=== PATIENT | female | born 1955 | race Caucasian/White ===

== ENCOUNTER 2017-08-10 14:22 | Emergency (ER) | payer BC ==
--- NOTE | 2017-08-10 14:46 | ED ---
General Adult HPI - General Chief complaint: Arrhythmia/Palpitations Stated complaint: Afib Time Seen by Provider: 08/10/17 14:34 Source: patient, EMS, RN notes reviewed Mode of arrival: EMS Limitations: no limitations - History of Present Illness Initial comments: Patient is a pleasant 62-year-old female presenting to the emergency department with palpitations. Onset was 7:30 this morning during argument. Patient has had similar symptoms previously associated with atrial fibrillation. Patient states there was mild heaviness associated which is also normal when she has these problems. Patient states she is having these problems and been in atrial fibrillation dozens of times previously. Patient used to have symptoms multiple times a month however currently is only having around once a month. Patient states it is not abnormal for the last 12-15 hours. Patient states she took her metoprolol this morning and then took an extra 50 mg this afternoon. Patient states symptoms resolved around the time of EMS arrival. No dyspnea. - Related Data Home Medications Medication Instructions Recorded Confirmed Cholecalciferol [Vitamin D3] 2,000 unit PO DAILY 02/27/16 08/10/17 Metoprolol Tartrate [Lopressor] 150 mg PO DAILY 02/27/16 08/10/17 Omeprazole [PriLOSEC] 20 mg PO DAILY PRN 02/27/16 08/10/17 Simvastatin [Zocor] 20 mg PO HS 02/27/16 08/10/17 Vitamin B Complex 1 cap PO DAILY 02/27/16 08/10/17 Warfarin Sodium [Coumadin] 5 mg PO HS 02/27/16 08/10/17 Allergies Allergy/AdvReac Type Severity Reaction Status Date / Time No Known Allergies Allergy Verified 08/10/17 14:48 Review of Systems ROS Statement: Those systems with pertinent positive or pertinent negative responses have been documented in the HPI. ROS Other: All systems not noted in ROS Statement are negative. Constitutional: Denies: fever Eyes: Denies: as per HPI ENT: Denies: ear pain Respiratory: Denies: cough Cardiovascular: Reports: palpitations Endocrine: Denies: fatigue Gastrointestinal: Denies: abdominal pain Genitourinary: Denies: dysuria Musculoskeletal: Denies: back pain Skin: Denies: rash Neurological: Denies: weakness Past Medical History Past Medical History: Coronary Artery Disease (CAD) Additional Past Medical History / Comment(s): proximal afib History of Any Multi-Drug Resistant Organisms: None Reported Past Surgical History: Section, Cholecystectomy, Hysterectomy, Orthopedic Surgery Past Psychological History: Depression Smoking Status: Never smoker Past Alcohol Use History: Occasional Past Drug Use History: None Reported General Exam Limitations: no limitations General appearance: alert, in no apparent distress Head exam: Present: atraumatic Eye exam: Present: normal appearance, PERRL ENT exam: Present: normal oropharynx Neck exam: Present: normal inspection Respiratory exam: Present: normal lung sounds bilaterally. Absent: chest wall tenderness Cardiovascular Exam: Present: regular rate, normal rhythm Expanded Peripheral pulses: 2+: Radial (R), Radial (L), Posterior Tibialis (R), Posterior Tibialis (L) GI/Abdominal exam: Present: soft. Absent: tenderness Extremities exam: Present: normal inspection. Absent: pedal edema, calf tenderness Neurological exam: Present: alert Psychiatric exam: Present: normal affect, normal mood Skin exam: Present: normal color Course Vital Signs 08/10/17 14:27 Temperature 97 F L Pulse Rate 63 Respiratory 16 Rate Blood Pressure 128/70 O2 Sat by Pulse 99 Oximetry EKG Findings - EKG Comments: EKG Findings:: Sinus bradycardia 56. SC 180. QRS 80. QT 410. QTc 395. Normal axis. Normal QRS. No acute ST change. Medical Decision Making - Medical Decision Making Patient reexamined and remained symptom-free. Patient requesting discharge. Patient is advised to follow-up with cardiology however states she will not see a copper flotation operator around here and will follow-up with somebody else. Patient rhythm remains normal sinus rhythm. Patient is therapeutic with Coumadin level. - Lab Data Result diagrams: 08/10/17 14:40 08/10/17 14:40 Lab Results 08/10/17 08/10/17 08/10/17 Range/Units 14:40 14:40 14:40 WBC 8.7 (3.8-10.6) k/uL RBC 5.40 (3.80-5.40) m/uL Hgb 16.4 H (11.4-16.0) gm/dL Hct 47.0 H (34.0-46.0) % MCV 87.1 (80.0-100.0) fL MCH 30.4 (25.0-35.0) pg MCHC 35.0 (31.0-37.0) g/dL RDW 14.7 (11.5-15.5) % Plt Count 185 (150-450) k/uL Neutrophils % 73 % Lymphocytes % 19 % Monocytes % 5 % Eosinophils % 2 % Basophils % 1 % Neutrophils # 6.3 (1.3-7.7) k/uL Lymphocytes # 1.6 (1.0-4.8) k/uL Monocytes # 0.4 (0-1.0) k/uL Eosinophils # 0.2 (0-0.7) k/uL Basophils # 0.0 (0-0.2) k/uL PT (9.0-12.0) sec INR (<1.2) APTT (22.0-30.0) sec Sodium 142 (137-145) mmol/L Potassium 4.1 (3.5-5.1) mmol/L Chloride 105 (98-107) mmol/L Carbon Dioxide 29 (22-30) mmol/L Anion Gap 8 mmol/L BUN 19 H (7-17) mg/dL Creatinine 0.80 (0.52-1.04) mg/dL Est GFR (MDRD) Af Amer >60 (>60 ml/min/1.73 sqM) Est GFR (MDRD) Non-Af >60 (>60 ml/min/1.73 sqM) Glucose 105 H (74-99) mg/dL Calcium 9.5 (8.4-10.2) mg/dL Magnesium 1.5 L (1.6-2.3) mg/dL Total Bilirubin 0.6 (0.2-1.3) mg/dL AST 26 (14-36) U/L ALT 40 (9-52) U/L Alkaline Phosphatase 70 (38-126) U/L Total Creatine Kinase 51 (30-135) U/L CK-MB (CK-2) 2.3 (0.0-2.4) ng/mL CK-MB (CK-2) Rel Index 4.5 Troponin I 0.014 (0.000-0.034) ng/mL Total Protein 6.4 (6.3-8.2) g/dL Albumin 3.9 (3.5-5.0) g/dL TSH 2.300 (0.465-4.680) mIU/L Free T4 1.08 (0.78-2.19) ng/dL Free T3 pg/mL 3.5 (2.8-5.3) pg/ml 08/10/17 Range/Units 14:40 WBC (3.8-10.6) k/uL RBC (3.80-5.40) m/uL Hgb (11.4-16.0) gm/dL Hct (34.0-46.0) % MCV (80.0-100.0) fL MCH (25.0-35.0) pg MCHC (31.0-37.0) g/dL RDW (11.5-15.5) % Plt Count (150-450) k/uL Neutrophils % % Lymphocytes % % Monocytes % % Eosinophils % % Basophils % % Neutrophils # (1.3-7.7) k/uL Lymphocytes # (1.0-4.8) k/uL Monocytes # (0-1.0) k/uL Eosinophils # (0-0.7) k/uL Basophils # (0-0.2) k/uL PT 21.1 H (9.0-12.0) sec INR 2.2 H (<1.2) APTT 28.8 (22.0-30.0) sec Sodium (137-145) mmol/L Potassium (3.5-5.1) mmol/L Chloride (98-107) mmol/L Carbon Dioxide (22-30) mmol/L Anion Gap mmol/L BUN (7-17) mg/dL Creatinine (0.52-1.04) mg/dL Est GFR (MDRD) Af Amer (>60 ml/min/1.73 sqM) Est GFR (MDRD) Non-Af (>60 ml/min/1.73 sqM) Glucose (74-99) mg/dL Calcium (8.4-10.2) mg/dL Magnesium (1.6-2.3) mg/dL Total Bilirubin (0.2-1.3) mg/dL AST (14-36) U/L ALT (9-52) U/L Alkaline Phosphatase (38-126) U/L Total Creatine Kinase (30-135) U/L CK-MB (CK-2) (0.0-2.4) ng/mL CK-MB (CK-2) Rel Index Troponin I (0.000-0.034) ng/mL Total Protein (6.3-8.2) g/dL Albumin (3.5-5.0) g/dL TSH (0.465-4.680) mIU/L Free T4 (0.78-2.19) ng/dL Free T3 pg/mL (2.8-5.3) pg/ml - Radiology Data Radiology results: image reviewed (Chest x-ray shows borderline cardiomegaly.) Disposition Clinical Impression: Atrial fibrillation Disposition: HOME SELF-CARE Condition: Stable Instructions: A-fib (Atrial Fibrillation) (ED) Additional Instructions: Please follow-up to primary care physician as well as cardiology tomorrow. Return for increased heart rate, difficulty breathing, chest pain, worsening symptoms or other concerns. Referrals: Eliazar Kirkland DO [Primary Care Provider] - 1-2 days Brody Mcdaniel MD [STAFF PHYSICIAN] - 1-2 days Time of Disposition: 15:54
[2017-08-10 14:56] LABS: Basophils % (A) 1 %; CH 30.6; CHCM 35.3; Eosinophils # (A) 0.2 k/uL (0-0.7); Eosinophils % (A) 2 %; HDW 2.78; HGB 16.4 gm/dL (11.4-16.0); Luc % (Auto) 1; Lymphocytes # (A) 1.6 k/uL (1.0-4.8); Lymphocytes % (A) 19 %; MCH 30.4 pg (25.0-35.0); MCV 87.1 fL (80.0-100.0); Mean Platelet Volume 7.5; Monocytes # (A) 0.4 k/uL (0-1.0); Monocytes % (A) 5 %; Neutrophils # (A) 6.3 k/uL (1.3-7.7); Neutrophils % (A) 73 %; RDW 14.7 % (11.5-15.5); WBC 8.7 k/uL (3.8-10.6); WBC (Perox) 8.93
[2017-08-10 15:03] LABS: INR 2.2 (<1.2); Partial Thromboplastin Time 28.8 sec (22.0-30.0); Prothrombin Time 21.1 sec (9.0-12.0)
[2017-08-10 15:05] LABS: ALT 40 U/L (9-52); AST 26 U/L (14-36); Alkaline Phosphatase 70 U/L (38-126); Anion Gap 8 mmol/L; Blood Urea Nitrogen 19 mg/dL (7-17); Calcium 9.5 mg/dL (8.4-10.2); Carbon Dioxide 29 mmol/L (22-30); Chloride 105 mmol/L (98-107); Glucose 105 mg/dL (74-99); Magnesium 1.5 mg/dL (1.6-2.3); Non-African American GFR(MDRD) >60 (>60 ml/min/1.73 sqM); Potassium 4.1 mmol/L (3.5-5.1); Sodium 142 mmol/L (137-145); Total Bilirubin 0.6 mg/dL (0.2-1.3); Total Protein 6.4 g/dL (6.3-8.2)
--- NOTE | 2017-08-10 15:08 | XR ---
EXAMINATION TYPE: XR chest 2V DATE OF EXAM: 08/10/2017 COMPARISON: Prior chest x-ray 02/27/2016 HISTORY: Dysrhythmia TECHNIQUE: Frontal and lateral views of the chest are obtained. FINDINGS: There is no focal air space opacity, pleural effusion, or pneumothorax seen. The cardiac silhouette size is enlarged. Patient is rotated. There are overlying cardiac leads. The osseous struc tures are intact. Surgical clips present in the right upper quadrant. IMPRESSION: Cardiomegaly may be at least in part due to rotation
[2017-08-10 15:27] LABS: Creatine Kinase MB 2.3 ng/mL (0.0-2.4); Troponin I 0.014 ng/mL (0.000-0.034)
[2017-08-10] MEDS ORDERED: MAGNESIUM OXIDE 400 MG TAB PO STA (15:50)
[2017-08-10 16:18] VITALS: BP 146/70; PULSE 52; RESP 18; TEMP 97.6
== END 2017-08-10 16:23 | disposition home or self-care (01) ==
LOC: EC 14:22
DX: I48.91 Unspecified atrial fibrillation (principal); I25.10 Atherosclerotic heart disease of native coronary artery without angina pectoris; Z79.01 Long term (current) use of anticoagulants; Z79.899 Other long term (current) drug therapy
CPT/HCPCS: 36415; 71020; 80053; 82550; 82553; 83735; 84439; 84443; 84481; 84484; 85025; 85610; 85730; 93005; 99285

== ENCOUNTER 2017-09-28 23:57 | Emergency (ER) | payer BC ==
[2017-09-28] MEDS ORDERED: SODIUM CHLORIDE 0.9% 500 ML IV STA (23:58)
[2017-09-28] MEDS ORDERED: SODIUM CHLORIDE 0.9% 1,000 ML IV STA (23:58)
[2017-09-28] MEDS ORDERED: DILTIAZEM 5 MG/ML 5 ML VIAL IVP STA (23:59)
[2017-09-28] MEDS ORDERED: DILTIAZEM 125 MG in SODIUM CHLORIDE 0.9% 100 ML IV ONE (23:59)
--- NOTE | 2017-09-29 | ED ---
General Adult HPI - General Stated complaint: arrythmia Time Seen by Provider: 09/28/17 23:58 Source: RN notes reviewed, old records reviewed - History of Present Illness Initial comments: This is a 62-year-old female to the ER for evaluation. She presents today for evaluation regarding still elevated heart rate. Near-syncopal events. Patient has history of A. fib with RVR recent ablation and decrease in, patient states for the past week she's had no no issues until tonight. She was vomiting increased stress with the holiday, does admit to not taking her magnesium as directed. Denies any chest pain, claims she feels okay - Related Data Home Medications Medication Instructions Recorded Confirmed Cholecalciferol [Vitamin D3] 2,000 unit PO DAILY 02/27/16 09/29/17 Metoprolol Tartrate [Lopressor] 25 mg PO DAILY 02/27/16 09/29/17 Omeprazole [PriLOSEC] 20 mg PO DAILY PRN 02/27/16 09/29/17 Simvastatin [Zocor] 20 mg PO HS 02/27/16 09/29/17 Vitamin B Complex 1 cap PO DAILY 02/27/16 09/29/17 Warfarin Sodium [Coumadin] 5 mg PO HS 02/27/16 09/29/17 Dofetilide [Tikosyn] 250 mcg PO Q12HR 09/29/17 09/29/17 Allergies Allergy/AdvReac Type Severity Reaction Status Date / Time No Known Allergies Allergy Verified 09/29/17 00:00 Review of Systems ROS Statement: Those systems with pertinent positive or pertinent negative responses have been documented in the HPI. ROS Other: All systems not noted in ROS Statement are negative. Past Medical History Past Medical History: Coronary Artery Disease (CAD), Hyperlipidemia Additional Past Medical History / Comment(s): proximal afib History of Any Multi-Drug Resistant Organisms: None Reported Past Surgical History: Section, Cholecystectomy, Orthopedic Surgery Past Alcohol Use History: None Reported General Exam General appearance: alert, in no apparent distress Head exam: Present: atraumatic, normocephalic, normal inspection Eye exam: Present: normal appearance, PERRL, EOMI. Absent: scleral icterus, conjunctival injection, periorbital swelling ENT exam: Present: normal exam, mucous membranes moist Neck exam: Present: normal inspection. Absent: tenderness, meningismus, lymphadenopathy Respiratory exam: Present: normal lung sounds bilaterally. Absent: respiratory distress, wheezes, rales, rhonchi, stridor Cardiovascular Exam: Present: tachycardia, irregular rhythm, normal heart sounds. Absent: systolic murmur, diastolic murmur, rubs, gallop, clicks GI/Abdominal exam: Present: soft, normal bowel sounds. Absent: distended, tenderness, guarding, rebound, rigid Extremities exam: Present: normal inspection, full ROM, normal capillary refill. Absent: tenderness, pedal edema, joint swelling, calf tenderness Back exam: Present: normal inspection Neurological exam: Present: alert, oriented X3, CN II-XII intact Psychiatric exam: Present: normal affect, normal mood Skin exam: Present: warm, dry, intact, normal color. Absent: rash Course Vital Signs 09/28/17 09/29/17 09/29/17 23:58 00:00 00:06 Temperature 97.5 F L Pulse Rate 69 112 H Pulse Rate [ 86 Housing Inspector ] Respiratory 20 18 Rate Blood Pressure 169/83 O2 Sat by Pulse 97 97 Oximetry 09/29/17 09/29/17 09/29/17 01:00 02:00 03:00 Temperature Pulse Rate 122 H 100 106 H Pulse Rate [ Housing Inspector ] Respiratory 18 20 20 Rate Blood Pressure 169/83 169/84 115/72 O2 Sat by Pulse 98 98 98 Oximetry - Reevaluation(s) Reevaluation #1: 09/29/17 04:02 Spoke with patient's transferred physician, on-call flight surveyor, suggested adding metoprolol, medications and the patient's heart rate did improve. Reevaluation #2: 09/29/17 04:03 Patient is continuing to feel better, electrolytes like to replaced. Patient will follow up with pertinent EP doctor on an outpatient basis EKG Findings - EKG Comments: EKG Findings:: EKG shows does show atrial fibrillation with RVR rate of 111, QRS 82, QTc 508 Medical Decision Making - Medical Decision Making 62 female DEL with A. fib with RVR, history of A. fib with RVR history of A. fib recent ablation on antiarrhythmic, patient went back into A. fib tonight and can full rate. Patient felt dizzy and lightheaded we'll transfer placed here in the ER, rate is more controlled patient will be discharged home - Lab Data Result diagrams: 09/29/17 00:34 09/29/17 00:34 Lab Results 09/29/17 09/29/17 09/29/17 Range/Units 00:34 00:34 00:34 WBC 8.3 (3.8-10.6) k/uL RBC 5.45 H (3.80-5.40) m/uL Hgb 16.8 H (11.4-16.0) gm/dL Hct 46.9 H (34.0-46.0) % MCV 86.1 (80.0-100.0) fL MCH 30.8 (25.0-35.0) pg MCHC 35.7 (31.0-37.0) g/dL RDW 13.3 (11.5-15.5) % Plt Count 190 (150-450) k/uL Neutrophils % 68 % Lymphocytes % 23 % Monocytes % 5 % Eosinophils % 3 % Basophils % 1 % Neutrophils # 5.6 (1.3-7.7) k/uL Lymphocytes # 1.9 (1.0-4.8) k/uL Monocytes # 0.4 (0-1.0) k/uL Eosinophils # 0.2 (0-0.7) k/uL Basophils # 0.0 (0-0.2) k/uL PT (9.0-12.0) sec INR (<1.2) APTT (22.0-30.0) sec Sodium 143 (137-145) mmol/L Potassium 3.7 (3.5-5.1) mmol/L Chloride 104 (98-107) mmol/L Carbon Dioxide 27 (22-30) mmol/L Anion Gap 12 mmol/L BUN 20 H (7-17) mg/dL Creatinine 0.80 (0.52-1.04) mg/dL Est GFR (MDRD) Af Amer >60 (>60 ml/min/1.73 sqM) Est GFR (MDRD) Non-Af >60 (>60 ml/min/1.73 sqM) Glucose 150 H (74-99) mg/dL Calcium 9.6 (8.4-10.2) mg/dL Phosphorus 2.0 L (2.5-4.5) mg/dL Magnesium 1.4 L (1.6-2.3) mg/dL Total Bilirubin 0.7 (0.2-1.3) mg/dL AST 38 H (14-36) U/L ALT 41 (9-52) U/L Alkaline Phosphatase 81 (38-126) U/L Total Creatine Kinase 66 (30-135) U/L CK-MB (CK-2) 1.6 (0.0-2.4) ng/mL CK-MB (CK-2) Rel Index 2.4 Troponin I <0.012 (0.000-0.034) ng/mL Total Protein 6.4 (6.3-8.2) g/dL Albumin 3.9 (3.5-5.0) g/dL TSH 4.290 (0.465-4.680) mIU/L Urine Color Urine Appearance (Clear) Urine pH (5.0-8.0) Ur Specific [place] (1.001-1.035) Urine Protein (Negative) Urine Glucose (UA) (Negative) Urine Ketones (Negative) Urine Blood (Negative) Urine Nitrite (Negative) Urine Bilirubin (Negative) Urine Urobilinogen (<2.0) mg/dL Ur Leukocyte Esterase (Negative) Urine RBC (0-5) /hpf Urine WBC (0-5) /hpf Ur Squamous Epith Cells (0-4) /hpf 09/29/17 09/29/17 Range/Units 00:34 00:34 WBC (3.8-10.6) k/uL RBC (3.80-5.40) m/uL Hgb (11.4-16.0) gm/dL Hct (34.0-46.0) % MCV (80.0-100.0) fL MCH (25.0-35.0) pg MCHC (31.0-37.0) g/dL RDW (11.5-15.5) % Plt Count (150-450) k/uL Neutrophils % % Lymphocytes % % Monocytes % % Eosinophils % % Basophils % % Neutrophils # (1.3-7.7) k/uL Lymphocytes # (1.0-4.8) k/uL Monocytes # (0-1.0) k/uL Eosinophils # (0-0.7) k/uL Basophils # (0-0.2) k/uL PT 38.9 H (9.0-12.0) sec INR 4.3 H (<1.2) APTT 36.6 H (22.0-30.0) sec Sodium (137-145) mmol/L Potassium (3.5-5.1) mmol/L Chloride (98-107) mmol/L Carbon Dioxide (22-30) mmol/L Anion Gap mmol/L BUN (7-17) mg/dL Creatinine (0.52-1.04) mg/dL Est GFR (MDRD) Af Amer (>60 ml/min/1.73 sqM) Est GFR (MDRD) Non-Af (>60 ml/min/1.73 sqM) Glucose (74-99) mg/dL Calcium (8.4-10.2) mg/dL Phosphorus (2.5-4.5) mg/dL Magnesium (1.6-2.3) mg/dL Total Bilirubin (0.2-1.3) mg/dL AST (14-36) U/L ALT (9-52) U/L Alkaline Phosphatase (38-126) U/L Total Creatine Kinase (30-135) U/L CK-MB (CK-2) (0.0-2.4) ng/mL CK-MB (CK-2) Rel Index Troponin I (0.000-0.034) ng/mL Total Protein (6.3-8.2) g/dL Albumin (3.5-5.0) g/dL TSH (0.465-4.680) mIU/L Urine Color Colorless Urine Appearance Clear (Clear) Urine pH 7.0 (5.0-8.0) Ur Specific [place] 1.005 (1.001-1.035) Urine Protein 1+ (Negative) Urine Glucose (UA) Negative (Negative) Urine Ketones Negative (Negative) Urine Blood Small (Negative) Urine Nitrite Negative (Negative) Urine Bilirubin Negative (Negative) Urine Urobilinogen <2.0 (<2.0) mg/dL Ur Leukocyte Esterase Negative (Negative) Urine RBC 1 (0-5) /hpf Urine WBC 0 (0-5) /hpf Ur Squamous Epith Cells 1 (0-4) /hpf Disposition Clinical Impression: Atrial fibrillation Disposition: HOME SELF-CARE Condition: Good Instructions: A-fib (Atrial Fibrillation) (ED) Referrals: Eliazar Kirkland DO [Primary Care Provider] - 1-2 days
[2017-09-29 00:01] VITALS: TEMP 97.5
[2017-09-29 00:56] LABS: INR 4.3 (<1.2); Partial Thromboplastin Time 36.6 sec (22.0-30.0); Prothrombin Time 38.9 sec (9.0-12.0)
[2017-09-29 00:57] LABS: Basophils % (A) 1 %; CH 31.5; CHCM 36.7; Eosinophils # (A) 0.2 k/uL (0-0.7); Eosinophils % (A) 3 %; HCT 46.9 % (34.0-46.0); HDW 3.04; HGB 16.8 gm/dL (11.4-16.0); Luc % (Auto) 1; Lymphocytes # (A) 1.9 k/uL (1.0-4.8); Lymphocytes % (A) 23 %; MCH 30.8 pg (25.0-35.0); MCHC 35.7 g/dL (31.0-37.0); MCV 86.1 fL (80.0-100.0); Mean Platelet Volume 6.6; Monocytes # (A) 0.4 k/uL (0-1.0); Monocytes % (A) 5 %; Neutrophils # (A) 5.6 k/uL (1.3-7.7); Neutrophils % (A) 68 %; RBC 5.45 m/uL (3.80-5.40); RDW 13.3 % (11.5-15.5); WBC 8.3 k/uL (3.8-10.6); WBC (Perox) 8.07
[2017-09-29 01:14] LABS: Appearance,Urine Clear (Clear)
[2017-09-29 01:15] LABS: Bilirubin,Urine Negative (Negative); Creatine Kinase 66 U/L (30-135); Glucose,Urine (UA) Negative (Negative); Leukocyte Esterase,Urine Negative (Negative); Nitrite,Urine Negative (Negative); Protein,Urine 1+ (Negative); Specific Gravity,Urine 1.005 (1.001-1.035); UA Billing (MACRO vs. MICRO) MICRO
[2017-09-29 01:17] LABS: Urobilinogen,Urine <2.0 mg/dL (<2.0)
[2017-09-29 01:20] LABS: RBC,Urine 1 /hpf (0-5); Squamous Epithelial Cell,Urine 1 /hpf (0-4); WBC,Urine 0 /hpf (0-5)
[2017-09-29 01:21] LABS: Ketones,Urine Negative (Negative)
[2017-09-29 01:22] LABS: ALT 41 U/L (9-52); AST 38 U/L (14-36); Alkaline Phosphatase 81 U/L (38-126); Anion Gap 12 mmol/L; Blood Urea Nitrogen 20 mg/dL (7-17); Calcium 9.6 mg/dL (8.4-10.2); Carbon Dioxide 27 mmol/L (22-30); Chloride 104 mmol/L (98-107); Glucose 150 mg/dL (74-99); Magnesium 1.4 mg/dL (1.6-2.3); Non-African American GFR(MDRD) >60 (>60 ml/min/1.73 sqM); Potassium 3.7 mmol/L (3.5-5.1); Sodium 143 mmol/L (137-145); Total Bilirubin 0.7 mg/dL (0.2-1.3); Total Protein 6.4 g/dL (6.3-8.2)
[2017-09-29 01:28] LABS: Creatine Kinase MB 1.6 ng/mL (0.0-2.4); Troponin I <0.012 ng/mL (0.000-0.034)
[2017-09-29] MEDS ORDERED: MAGNESIUM OXIDE 400 MG TAB PO STA (01:42)
[2017-09-29] MEDS ORDERED: POTASSIUM BICARB-CITRIC ACID 25 MEQ TABLET.EFF PO STA (01:42)
[2017-09-29] MEDS ORDERED: MAGNESIUM SULFATE-D5W PMX 1 GM in DEXTROSE/WATER 1 100ML.BAG IVPB SCH (02:00)
[2017-09-29] MEDS ORDERED: POTASSIUM CHLORIDE ER 20 MEQ TAB.ER PO STA (02:04)
[2017-09-29] MEDS ORDERED: METOPROLOL TARTRATE 25 MG TAB PO STA (02:13)
[2017-09-29 02:36] VITALS: RESP 20
[2017-09-29 03:23] VITALS: BP 115/72; PULSE 106
== END 2017-09-29 04:14 | disposition home or self-care (01) ==
LOC: EC 23:57
DX: I48.91 Unspecified atrial fibrillation (principal); R11.10 Vomiting, unspecified; E78.5 Hyperlipidemia, unspecified; I25.10 Atherosclerotic heart disease of native coronary artery without angina pectoris; Z79.01 Long term (current) use of anticoagulants; Z79.899 Other long term (current) drug therapy; Z98.890 Other specified postprocedural states
CPT/HCPCS: 36415; 93005; 80053; 82550; 82553; 83735; 84100; 84443; 84484; 85025; 85610; 85730; 81001; 99285; 96365; 96361; J3475

== ENCOUNTER 2017-11-12 13:06 | Observation (INO) | payer BC ==
[2017-11-12] MEDS ORDERED: SODIUM CHLORIDE 0.9% 500 ML IV STA (13:33)
[2017-11-12 13:34] LABS: Glucose,Whole Blood 124 mg/dL (75-99)
--- NOTE | 2017-11-12 13:38 | ED ---
General Adult HPI - General Chief complaint: Neuro Symptoms/Deficit Stated complaint: left arm numbness/slurred speech Time Seen by Provider: 11/12/17 13:10 Source: patient, RN notes reviewed Mode of arrival: wheelchair Limitations: no limitations - History of Present Illness Initial comments: Assessment 62-year-old female presents emergency Department with a past medical history significant for migraines. Patient comes in today because earlier today she started having a migraine headache and then at about 12:00 she started having some numbness on the left side with a little bit of weakness on the left arm. Patient also states she thought her speech was off. Patient denies any headache. Patient denies any right-sided symptoms. Patient denies any chest pain difficulty breathing or shortness of breath. Patient denies any nausea or vomiting. Patient seems to be speaking clearly and states that she still thinks she's not speaking clearly. - Related Data Home Medications Medication Instructions Recorded Confirmed Cholecalciferol [Vitamin D3] 2,000 unit PO DAILY 02/27/16 11/12/17 Omeprazole [PriLOSEC] 20 mg PO DAILY PRN 02/27/16 11/12/17 Vitamin B Complex 1 cap PO DAILY 02/27/16 11/12/17 Warfarin Sodium [Coumadin] 5 mg PO HS 02/27/16 11/12/17 Dofetilide [Tikosyn] 250 mcg PO Q12HR 09/29/17 11/12/17 Magnesium Gluconate [Magonate] 500 mg PO TID 11/12/17 11/12/17 Metoprolol Tartrate [Lopressor] 25 mg PO Q12H 11/12/17 11/12/17 Allergies Allergy/AdvReac Type Severity Reaction Status Date / Time azithromycin [From Zithromax] AdvReac Nausea & Verified 11/12/17 14:11 Vomiting Review of Systems ROS Statement: Those systems with pertinent positive or pertinent negative responses have been documented in the HPI. ROS Other: All systems not noted in ROS Statement are negative. Past Medical History Past Medical History: Coronary Artery Disease (CAD), Hyperlipidemia Additional Past Medical History / Comment(s): proximal afib History of Any Multi-Drug Resistant Organisms: None Reported Past Surgical History: Section, Cholecystectomy, Orthopedic Surgery Past Psychological History: Depression Smoking Status: Never smoker Past Alcohol Use History: None Reported Past Drug Use History: None Reported General Exam - General Exam Comments Initial Comments: GENERAL: Patient is well-developed and well-nourished. Patient is nontoxic and well- hydrated and is in mild distress. ENT: Neck is soft and supple. No significant lymphadenopathy is noted. Oropharynx is clear. Moist mucous membranes. Neck has full range of motion without eliciting any pain. EYES: The sclera were anicteric and conjunctiva were pink and moist. Extraocular movements were intact and pupils were equal round and reactive to light. Eyelids were unremarkable. PULMONARY: Unlabored respirations. Good breath sounds bilaterally. No audible rales rhonchi or wheezing was noted. CARDIOVASCULAR: There is a regular rate and rhythm without any murmurs gallops or rubs. ABDOMEN: Soft and nontender with normal bowel sounds. No palpable organomegaly was noted. There is no palpable pulsatile mass. SKIN: Skin is clear with no lesions or rashes and otherwise unremarkable. NEUROLOGIC: Patient is alert and oriented x3. Cranial nerves II through XII are grossly intact. Patient has slight decreased warp drawer in the left and patient feels as though her sensation in her left leg is decreased compared to the right. Normal speech, volume and content. Patient has no drift and she has a symmetrical smile MUSCULOSKELETAL: Normal extremities with adequate strength and full range of motion. No lower extremity swelling or edema. No calf tenderness. LYMPHATICS: No significant lymphadenopathy is noted PSYCHIATRIC: Normal psychiatric evaluation. Limitations: no limitations Course Vital Signs 11/12/17 11/12/17 11/12/17 13:08 13:21 13:34 Temperature 97.4 F L Pulse Rate 75 67 68 Respiratory 20 18 18 Rate Blood Pressure 215/98 182/83 180/96 O2 Sat by Pulse 96 100 99 Oximetry 11/12/17 11/12/17 13:49 14:04 Temperature Pulse Rate 68 62 Respiratory Rate Blood Pressure 205/93 185/83 O2 Sat by Pulse 100 100 Oximetry Medical Decision Making - Medical Decision Making EKG shows normal sinus rhythm at 65 bpm MI interval is 168 QRSs 82 QT interval is 444 QTC is 461 per patient's EKG shows no ST segment elevation or depression or T wave abnormalities are noted. CTA and CT of the head showed no acute abnormality. The neuro interventional is noted no about this case was okay without doing any TPA. Patient's symptoms seemed to resolve however she still complained of a significant migraine headache Patient refuses have a consult for Dr. Monson or Dr. Bland - Lab Data Result diagrams: 11/12/17 13:30 11/12/17 13:30 Lab Results 11/12/17 11/12/17 11/12/17 Range/Units 13:30 13:30 13:30 WBC 6.5 (3.8-10.6) k/uL RBC 5.44 H (3.80-5.40) m/uL Hgb 16.4 H (11.4-16.0) gm/dL Hct 47.6 H (34.0-46.0) % MCV 87.6 (80.0-100.0) fL MCH 30.1 (25.0-35.0) pg MCHC 34.4 (31.0-37.0) g/dL RDW 12.9 (11.5-15.5) % Plt Count 195 (150-450) k/uL Neutrophils % 68 % Lymphocytes % 23 % Monocytes % 4 % Eosinophils % 2 % Basophils % 1 % Neutrophils # 4.5 (1.3-7.7) k/uL Lymphocytes # 1.5 (1.0-4.8) k/uL Monocytes # 0.3 (0-1.0) k/uL Eosinophils # 0.1 (0-0.7) k/uL Basophils # 0.0 (0-0.2) k/uL PT (9.0-12.0) sec INR (<1.2) APTT (22.0-30.0) sec Sodium 139 (137-145) mmol/L Potassium 4.0 (3.5-5.1) mmol/L Chloride 102 (98-107) mmol/L Carbon Dioxide 24 (22-30) mmol/L Anion Gap 13 mmol/L BUN 20 H (7-17) mg/dL Creatinine 0.70 (0.52-1.04) mg/dL Est GFR (MDRD) Af Amer >60 (>60 ml/min/1.73 sqM) Est GFR (MDRD) Non-Af >60 (>60 ml/min/1.73 sqM) Glucose 129 H (74-99) mg/dL POC Glucose (mg/dL) (75-99) mg/dL POC Glu Clay Artist ID Calcium 9.7 (8.4-10.2) mg/dL Total Bilirubin 1.0 (0.2-1.3) mg/dL AST 40 H (14-36) U/L ALT 37 (9-52) U/L Alkaline Phosphatase 91 (38-126) U/L Total Creatine Kinase 78 (30-135) U/L CK-MB (CK-2) 2.2 (0.0-2.4) ng/mL CK-MB (CK-2) Rel Index 2.8 Troponin I <0.012 (0.000-0.034) ng/mL Total Protein 7.2 (6.3-8.2) g/dL Albumin 4.6 (3.5-5.0) g/dL 11/12/17 11/12/17 Range/Units 13:30 13:32 WBC (3.8-10.6) k/uL RBC (3.80-5.40) m/uL Hgb (11.4-16.0) gm/dL Hct (34.0-46.0) % MCV (80.0-100.0) fL MCH (25.0-35.0) pg MCHC (31.0-37.0) g/dL RDW (11.5-15.5) % Plt Count (150-450) k/uL Neutrophils % % Lymphocytes % % Monocytes % % Eosinophils % % Basophils % % Neutrophils # (1.3-7.7) k/uL Lymphocytes # (1.0-4.8) k/uL Monocytes # (0-1.0) k/uL Eosinophils # (0-0.7) k/uL Basophils # (0-0.2) k/uL PT 18.5 H (9.0-12.0) sec INR 2.0 H (<1.2) APTT 28.3 (22.0-30.0) sec Sodium (137-145) mmol/L Potassium (3.5-5.1) mmol/L Chloride (98-107) mmol/L Carbon Dioxide (22-30) mmol/L Anion Gap mmol/L BUN (7-17) mg/dL Creatinine (0.52-1.04) mg/dL Est GFR (MDRD) Af Amer (>60 ml/min/1.73 sqM) Est GFR (MDRD) Non-Af (>60 ml/min/1.73 sqM) Glucose (74-99) mg/dL POC Glucose (mg/dL) 124 H (75-99) mg/dL POC Glu Clay Artist ID Vesna Robison Calcium (8.4-10.2) mg/dL Total Bilirubin (0.2-1.3) mg/dL AST (14-36) U/L ALT (9-52) U/L Alkaline Phosphatase (38-126) U/L Total Creatine Kinase (30-135) U/L CK-MB (CK-2) (0.0-2.4) ng/mL CK-MB (CK-2) Rel Index Troponin I (0.000-0.034) ng/mL Total Protein (6.3-8.2) g/dL Albumin (3.5-5.0) g/dL Disposition Clinical Impression: Migraine headache, Transient cerebral ischemia Disposition: ADMITTED IP TO THIS [facility] Time of Disposition: 15:35
[2017-11-12 13:43] LABS: Basophils % (A) 1 %; Eosinophils # (A) 0.1 k/uL (0-0.7); Eosinophils % (A) 2 %; HCT 47.6 % (34.0-46.0); HGB 16.4 gm/dL (11.4-16.0); Lymphocytes # (A) 1.5 k/uL (1.0-4.8); Lymphocytes % (A) 23 %; MCH 30.1 pg (25.0-35.0); MCHC 34.4 g/dL (31.0-37.0); MCV 87.6 fL (80.0-100.0); Monocytes # (A) 0.3 k/uL (0-1.0); Monocytes % (A) 4 %; Neutrophils # (A) 4.5 k/uL (1.3-7.7); Neutrophils % (A) 68 %; Platelet Count 195 k/uL (150-450); RBC 5.44 m/uL (3.80-5.40); RDW 12.9 % (11.5-15.5); WBC 6.5 k/uL (3.8-10.6)
[2017-11-12] MEDS ORDERED: RX INFO: IV CONTRAST WAS GIVEN 1 EACH MISC MISCELLANE PRN (13:50)
[2017-11-12] MEDS ORDERED: ONDANSETRON 4 MG/2 ML VIAL IVP STA (13:51)
[2017-11-12 13:58] LABS: Partial Thromboplastin Time 28.3 sec (22.0-30.0); Prothrombin Time 18.5 sec (9.0-12.0)
--- NOTE | 2017-11-12 13:58 | CT ---
EXAMINATION TYPE: CT brain wo con for TPA DATE OF EXAM: 11/12/2017 COMPARISON: NONE INDICATION: Lt sided numbness, severe FRITZ DLP: 1006.7 mGycm, Automated exposure control for dose reduction was used. CONTRAST: None CT of the brain is performed utilizing 3 mm thick sections through the posterior fossa and 3 mm thick sections through the remaining calvarium. Study is performed within 24 hours of arrival to the hosp ital. No abnormal hyperdensity is present to suggest an acute intracranial hemorrhage. No mass lesion is evident. No acute infarcts are evident. Very subtle white matter ischemic change may be within the bilateral p osterior basal ganglion into the periventricular regions. This is nonspecific. No mass effect is evid ent. Chronic changes likely present. Ventricles and sulci are appropriate for the patient age. Paranasal sinuses and mastoid air cells within the [id number] are clear. IMPRESSIONS: 1. Very subtle white matter ischemic type changes are likely present. Acute infarct is not identifi ed. No acute hemorrhage is evident.
[2017-11-12 14:00] LABS: ALT 37 U/L (9-52); AST 40 U/L (14-36); Albumin 4.6 g/dL (3.5-5.0); Alkaline Phosphatase 91 U/L (38-126); Anion Gap 13 mmol/L; Blood Urea Nitrogen 20 mg/dL (7-17); Calcium 9.7 mg/dL (8.4-10.2); Carbon Dioxide 24 mmol/L (22-30); Chloride 102 mmol/L (98-107); Glucose 129 mg/dL (74-99); Sodium 139 mmol/L (137-145); Total Protein 7.2 g/dL (6.3-8.2)
[2017-11-12 14:11] LABS: Creatine Kinase 78 U/L (30-135)
[2017-11-12 14:23] LABS: Creatine Kinase MB 2.2 ng/mL (0.0-2.4); Troponin I <0.012 ng/mL (0.000-0.034)
--- NOTE | 2017-11-12 15:13 | CT ---
EXAMINATION TYPE: CT angio head neck DATE OF EXAM: 11/12/2017 HISTORY: Patient complains of headache. COMPARISON: NONE CT DLP: 507.8 mGycm. Automated Exposure Control for Dose Reduction was Utilized. TECHNIQUE: CTA scan of the neck is performed with IV Contrast, patient injected with 80 mL of Omnipa que 350, axial images are obtained, coronal and sagittal reformatted images are reviewed. Three-D rec onstructed images are created on an independent workstation and reviewed. FINDINGS: Carotid/Vascular Structures: There is a normal three-vessel arch. Bilateral vertebral arteries are pa tent. Common carotid arteries to the internal carotid arteries appear normal. Internal carotid arteri es appear unremarkable. Minimal atheromatous plaquing is present on the left carotid bifurcation with out stenosis. [place]: Internal carotid arteries bifurcate into A1 and M1 segments. A2 segments appear unr emarkable. Anterior communicating artery is patent. Middle cerebral artery branches are normal. Basil ar tip is unremarkable. Posterior cerebral vasculature is normal. Posterior communicating arteries ar e not identified. There may be a tympanic artery present on the right, normal variant. Other: Lung apices are clear. Portion of the thyroid visualized is normal. Subglottic airway is smith l. Vocal cord level is symmetrical. No suspicious adenopathy is evident. Parotid glands and submandib ular glands are normal. IMPRESSION: 1. Normal bilateral carotid bifurcations. 2. Normal three-vessel arch. 3. [place] is within normal limits.
[2017-11-12] MEDS ORDERED: PROMETHAZINE INJ 25 MG/ML 1 ML VIAL IVPB STA (15:29)
[2017-11-12] MEDS ORDERED: KETOROLAC 60 MG/2 ML VIAL IVP STA (15:29)
[2017-11-12] MEDS ORDERED: diphenhydrAMINE 50 MG/ML 1 ML VIAL IVP STA (15:29)
[2017-11-12] MEDS ORDERED: PROMETHAZINE INJ 25 MG in SODIUM CHLORIDE 0.9% 50 ML IVPB STA (15:31)
[2017-11-12] MEDS ORDERED: ASPIRIN 325 MG TAB PO STA (15:35)
--- NOTE | 2017-11-12 15:48 | XR ---
EXAMINATION TYPE: XR chest 2V DATE OF EXAM: 11/12/2017 COMPARISON: Chest x-ray August 10, 2017. HISTORY: Altered mental status and weakness. Left arm numbness. TECHNIQUE: Frontal and lateral views of the chest are obtained. FINDINGS: There is chronic parenchymal change without suspicious focal air space opacity, pleural ef fusion, or pneumothorax seen. The cardiac silhouette size remains enlarged. The osseous structures are intact. IMPRESSION: Cardiomegaly and chronic parenchymal changes without acute pulmonary process. No signifi cant change from prior chest x-ray.
[2017-11-12] MEDS ORDERED: HYDROmorphone 0.5 MG/0.5 ML SYRINGE IVP PRN (17:38)
[2017-11-12] MEDS ORDERED: PANTOPRAZOLE 40 MG TABLET PO PRN (17:39)
[2017-11-12] MEDS ORDERED: Acetaminophen-Codeine 300-30mg TAB PO PRN (17:40)
[2017-11-12] MEDS ORDERED: KETOROLAC 30 MG/ML 1 ML VIAL IVP PRN (17:41)
[2017-11-12] MEDS ORDERED: METOPROLOL TARTRATE 25 MG TAB PO SCH (18:00)
[2017-11-12 18:49] VITALS: BMI 33.9
--- NOTE | 2017-11-12 19:33 | P.CNNES ---
History of Present Illness Consult date: 11/12/17 Reason for Consult: This patient with left arm weakness and headaches. History of Present Illness: This patient is a 62-year-old right-handed white female who was brought into the emergency room admin [facility] today for evaluation of headache. Patient was cleaning her house early this afternoon and developed severe headache pain along with left-sided arm numbness and weakness. She was also noted by a friend who was with her as having some garbled speech. Patient just did not feel well and had to leave this home that she was cleaning. While driving home she noticed that the left arm was still giving her numb feeling as well as loss of sensation in the right foot as she was driving and using the pedals in her car. The patient has an extensive past medical history of coronary artery disease. She is undergone recent ablation procedures at [facility]. She states that on 10/09/2017 she underwent a PDI procedure at [facility] with Dr. Collado. Apparently he performed a special procedure which was considered an ablation procedure for treatment of her atrial fibrillation. In September 2017 she also underwent a ablation procedure for treatment of atrial flutter. The patient states that since 10/09/2017 she has been placed on T Brush for further management of her cardiac arrhythmia. She states she has been on T Brush since October. She has been having severe headaches more recently and was reevaluated by her physician at [facility] in October 12. She was sent for several studies which she states included a MRI and CTA angiogram studies due to the severity of her headaches at the time. She was told that there was some evidence of a small aneurysm but she is unable to elaborate the exact size or location of the aneurysm. We are requesting that all of those records from [facility] be obtained in regards to the MRI and CTA angiogram so this could be reviewed. The patient has been on Coumadin for treatment of her atrial fibrillation. Her INR today in the ER was 2.0. She did develop some headache in the ER and was given Toradol which did seem to help. In the emergency room she was evaluated by Dr. Laughlin. Apparently after the CT CTA results were obtained the neural interventionalists was contacted at [facility]. The patient was not a candidate for TPA. Her symptoms did seem to improve with time. 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 The patient is to be sent for MRI and MRA [place] this evening and we will need to review those results. Given her history of atrial fibrillation she is at risk for TIA versus stroke. Her migraine headaches are also of concern since recent testing at [facility] revealed presence of an aneurysm. We will obtain the MRI MRA results tomorrow and review this with the patient as well. The patient is currently doing better in terms of the migraine type headache. We will await further recommendations from cardiology in regards to her atrial fibrillation. Would also request cardiology to comment on the use of the T cousin possibly also triggering some of her vascular headaches. We will await further recommendations from cardiology. Patient states she does have a history of migraines in the past. She has been using only Motrin as needed. More recently since undergoing the PDI ablation procedure at [facility] on 10/09/2017 the migraine headaches have become more severe. At this time she will be closely monitored for possibility of TIA versus stroke. Would recommend to maintain her Coumadin levels with the INR between 2-3. Neurology is now been consulted for further evaluation and recommendations. Review of Systems Constitutional: Denies chills, Denies fever Eyes: denies blurred vision, denies pain Ears, nose, mouth and throat: Denies headache, Denies sore throat Cardiovascular: Denies chest pain, Denies shortness of breath Respiratory: Denies cough Gastrointestinal: Denies abdominal pain, Denies diarrhea, Denies nausea, Denies vomiting Genitourinary: Denies dysuria, Denies hematuria Musculoskeletal: Denies myalgias Integumentary: Denies pruritus, Denies rash Neurological: Reports headaches, Reports migraines, Reports paresthesias, Reports tingling, Denies numbness, Denies weakness Psychiatric: Denies anxiety, Denies depression Endocrine: Denies fatigue, Denies weight change Past Medical History Past Medical History: Coronary Artery Disease (CAD), Hyperlipidemia Additional Past Medical History / Comment(s): proximal afib History of Any Multi-Drug Resistant Organisms: None Reported Past Surgical History: Section, Cholecystectomy, Orthopedic Surgery Additional Past Surgical History / Comment(s): cardiac ablation, PVI 2018 Past Psychological History: Depression Smoking Status: Never smoker Past Alcohol Use History: None Reported Past Drug Use History: None Reported Medications and Allergies Home Medications Medication Instructions Recorded Confirmed Type Cholecalciferol [Vitamin D3] 2,000 unit PO DAILY 02/27/16 11/12/17 History Omeprazole [PriLOSEC] 20 mg PO DAILY PRN 02/27/16 11/12/17 History Vitamin B Complex 1 cap PO DAILY 02/27/16 11/12/17 History Warfarin Sodium [Coumadin] 5 mg PO HS 02/27/16 11/12/17 History Dofetilide [Tikosyn] 250 mcg PO Q12HR 09/29/17 11/12/17 History Magnesium Gluconate [Magonate] 500 mg PO TID 11/12/17 11/12/17 History Metoprolol Tartrate [Lopressor] 25 mg PO Q12H 11/12/17 11/12/17 History Allergies Allergy/AdvReac Type Severity Reaction Status Date / Time azithromycin [From Zithromax] AdvReac Nausea & Verified 11/12/17 14:11 Vomiting Physical Examination - Vital Signs Vital Signs: Vital Signs Temp Pulse Pulse Resp BP BP Pulse Ox 11/12/17 18:35 97.9 F 73 18 186/76 100 11/12/17 16:44 98 F 71 20 175/77 99 11/12/17 14:04 62 185/83 100 11/12/17 13:49 68 205/93 100 11/12/17 13:34 68 18 180/96 99 11/12/17 13:21 67 18 182/83 100 11/12/17 13:08 97.4 F L 75 20 215/98 96 Intake and Output 11/12/17 11/12/17 11/12/17 06:59 14:59 22:59 Other: Weight 113.398 kg 113.398 kg Patient Weight 11/13/17 06:59 Weight 113.398 kg - Constitutional General appearance: average body habitus, cooperative - EENT EENT: PERRL, mucous membranes moist - Respiratory Respiratory: lungs clear, normal breath sounds - Cardiovascular Cardiovascular: normal S1, normal S2 Extremities: no peripheral edema bilaterally - Gastrointestinal Gastrointestinal: normoactive bowel sounds - Integumentary Integumentary: normal - Neurologic Cranial nerve examination: PERRL, EOMI, VFF, V1/V2/V3 grossly intact, face symmetric, tongue midline, intact gag reflex, intact corneal reflex, normal palatal elevation Speech examination: intact Sensorimotor examination: intact Detailed motor examination: grossly full strength in all extremities Motor examination - right side: 4/5: biceps, triceps, wrist flexion, wrist extension, machine stoppage frequency checker, hip flexors, knee extensors, dorsiflexion, toe extension (EHL) , plantarflexion Motor examination - left side: 4/5: biceps, triceps, wrist flexion, wrist extension, machine stoppage frequency checker, hip flexors, knee extensors, dorsiflexion, toe extension (EHL) , plantarflexion Detailed sensory examination: intact Reflex and gait examination: intact Reflexes: 1+: ankle, bicep, knee, tricep - Musculoskeletal Musculoskeletal: no pain - Psychiatric Psychiatric: mood/affect appropriate, cooperative Results - Laboratory Findings CBC and BMP: 11/12/17 13:30 11/12/17 13:30 Abnormal Lab Findings: Abnormal Labs 11/12/17 11/12/17 11/12/17 13:30 13:30 13:30 RBC 5.44 H Hgb 16.4 H Hct 47.6 H PT 18.5 H INR 2.0 H BUN 20 H Glucose 129 H POC Glucose (mg/dL) AST 40 H C-Reactive Protein 11/12/17 11/12/17 13:30 13:32 RBC Hgb Hct PT INR BUN Glucose POC Glucose (mg/dL) 124 H AST C-Reactive Protein 12.9 H Assessment and Plan (1) Transient brainstem ischemia Current Visit: Yes Status: Acute Code(s): G45.9 - TRANSIENT CEREBRAL ISCHEMIC ATTACK, UNSPECIFIED SNOMED Code(s): 529976826 (2) Cerebral aneurysm Current Visit: Yes Status: Acute Code(s): I67.1 - CEREBRAL ANEURYSM, NONRUPTURED SNOMED Code(s): 440897990 (3) Chronic atrial fibrillation Current Visit: Yes Status: Acute Code(s): I48.2 - CHRONIC ATRIAL FIBRILLATION SNOMED Code(s): 182527091 (4) Migraine headache Current Visit: Yes Status: Acute Code(s): G43.909 - MIGRAINE, UNSP, NOT INTRACTABLE, WITHOUT STATUS MIGRAINOSUS SNOMED Code(s): 11403455 Plan: This patient is a 62-year-old female who was admitted to Hospital with symptoms of acute left arm numbness and weakness. She also had some slurring of speech early this afternoon while she was cleaning a neighbor's home. She was driving back home and she just did not feel well and noticed the left arm numbness become more pronounced. She was also experiencing numbness in her right foot. The foot also felt heavy. She was able to get home and called her daughter. She did notice that her headache pain was also quite severe on the left side. She was brought into the emergency room at [facility]. She underwent a CT scan of the brain and a CT angiogram. Neuro interventionalist at [facility] was was contacted and reviewed her neuroimaging studies and she was not a candidate for TPA. Patient was treated for acute migraine headache as well in the emergency room but toward all. She was subsequent admitted to Hospital. Patient has a history of recently undergoing PDI ablation procedure of [facility] on 10/09/2017. Following this procedure she was started on T Ajit. She has been having more severe migraine-like headaches since the procedure in October 2017. The patient is being anticoagulated and is on Coumadin. Her INR today on admission was 2.0. Clinical history suggests possibility of brainstem ischemia. We are recommending MRI MRA studies of the brain to be done today for immediate review. We will await further recommendations from cardiology regarding her extensive cardiac history and ablation procedures. Would also request their recommendation regarding her Tikosyn medication as to whether this may also contribute to headaches for her. Patient apparently had MRI done at [facility] in October that revealed a aneurysm. We are requesting all of the records from [facility] so this can be further reviewed. Patient is unable to give details of what she was told in October in terms of the aneurysm. We will continue to follow her closely with close neuro checks during this admission. Her overall prognosis at this time remains guarded. Time with Patient: Greater than 30
--- NOTE | 2017-11-12 20:12 | MR ---
EXAMINATION TYPE: MR angio head wo con DATE OF EXAM: 11/12/2017 COMPARISON: CTA head earlier today. HISTORY: Migraines TECHNIQUE: Time of flight images focusing on the [place] were performed without contrast.. 2-D and 3-D postprocessing imaging is performed. FINDINGS: There is codominant vertebrobasilar system redemonstrated. There is no significant focal st enosis or aneurysmal change seen. There are hypoplastic posterior communicating arteries noted bilate rally. Images of the anterior circulation show small show no significant focal stenosis or aneurysmal change . Patent anterior communicating artery is demonstrated. IMPRESSION: No significant focal stenosis or aneurysmal change at level of [place]. Findings correlate with same day CTA [place] study.
--- NOTE | 2017-11-12 20:14 | MR ---
EXAMINATION TYPE: MR brain wo/w con DATE OF EXAM: 11/12/2017 COMPARISON: CT brain earlier today HISTORY: Migraines TECHNIQUE: Multiplanar, multisequence images of the brain and brainstem is performed without and with IV contras t, utilizing 11.5 mL intravenous Gadavist . FINDINGS: Diffusion weighted images demonstrate no evidence of a recent infarct or other diffusion ab normality. There is no worrisome extra-axial fluid collection. The ventricular system and cisternal spaces are normal in size and appearance. The brain volume is age appropriate. Cavum septum pelluci dum is present. There are some scattered foci of T2 intensity is seen throughout the white matter yousif aterally. Lesions are most likely on the basis of product of chronic small vessel ischemic change in patient this age. Midline structures demonstrate normal morphology. The craniocervical junction appears within normal limits. Post contrast images demonstrate no abnormal enhancement. The dural venous sinuses appear pa tent. The visualized sinuses are clear and the globes are intact. IMPRESSION: No evidence of a recent infarct. Mild nonspecific white matter changes may be basis of pr oduct of chronic small vessel ischemic change or altered vascular mechanics related to migraine heada ches.
--- NOTE | 2017-11-12 20:18 | HP ---
HISTORY AND PHYSICAL DATE OF SERVICE: 11/12/2017. CHIEF COMPLAINTS: Headaches and as well as left arm numbness and right arm numbness and incoordination. HISTORY OF PRESENT ILLNESS: This 62-year-old woman with a past medical history including hyperlipidemia, history paroxysmal atrial fibrillation, history of CAD, being followed by primary physician elsewhere had a cardiac ablation procedure at [facility] recently. Subsequently patient has severe headaches, migraine mainly on the left side. Today the patient had numbness on the left side of the arm and as well as right leg also felt incoordination. Patient came to [facility] and was admitted for further evaluation and treatment. A CT and CT angiography was negative and there is no history of fever, rigors. No headache, loss of consciousness, seizures. PAST MEDICAL HISTORY: History of hyperlipidemia, history of paroxysmal atrial fibrillation, history of CAD ablation, history of section. MEDICATIONS: 1. Coumadin 5 mg q.h.s. 2. Vitamin B complex p.o. daily. 3. Prilosec 20 mg daily p.r.n. 4. Lopressor 25 mg p.o. b.i.d. 5. Magonate 500 mg p.o. t.i.d. 6. Tikosyn 250 mg p.o. b.i.d. 7. Vitamin D3 2000 daily. ALLERGIES: ZITHROMAX. FAMILY HISTORY: No history of heart disease or strokes in the family. 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 No history of smoking. No history of alcohol. REVIEW OF SYSTEMS: ENT: As mentioned earlier. CARDIOVASCULAR: No angina. RESPIRATORY: As mentioned earlier. GI: No nausea. : No dysuria. NERVOUS SYSTEM: As mentioned. ALLERGY/IMMUNOLOGY: No asthma or hayfever. MUSCULOSKELETAL: As mentioned earlier. HEMATOLOGY: No history of anemia. ENDOCRINE: No history of diabetes or hypothyroidism. CONSTITUTIONAL: As mentioned earlier. DERMATOLOGY: Negative. RHEUMATOLOGY: Negative. PSYCHIATRY: As mentioned earlier. PHYSICAL EXAM: Alert, oriented x3. Pulse 71, blood pressure 120/77, respiration 20, temperature 98 degrees, pulse ox 98% on 2 L. HEENT: Conjunctivae normal. Oral mucosa moist. NECK: No jugular venous distention. No carotid bruit. No lymph node enlargement. CARDIOVASCULAR: S1, S2. RESPIRATORY: Breath sounds diminished in the bases. No rhonchi, no crackles. ABDOMEN: Soft, nontender. No mass palpable. LEGS: No edema, no swelling. NERVOUS SYSTEM: Higher functions as mentioned earlier. Cranial nerves movements full in directions. Pupils are 3 mm regular and symmetrical. Otherwise no focal motor sensory deficit. Moves all 4 limbs. No signs of cerebellar dysfunction and gait not tested. LYMPHATICS: No lymphadenopathy in the neck, axillae, groin. SKIN: No ulcer, rash, bleeding. JOINTS: No active deforming arthropathy. LABS: WBC 6.2, hemoglobin 16.4. ASSESSMENT: 1. Severe headache, possibly migrainous cephalgia. 2. Numbness both sides, possible acute transient ischemic attack. 3. History of recent cardiac ablation. 4. Hyperlipidemia. 5. Paroxysmal atrial fibrillation. 6. History of coronary artery disease. 7. History of cholecystectomy. 8. History of degenerative joint disease. 9. History of depression. RECOMMENDATIONS AND DISCUSSION: This 62-year-old woman who presented with multiple complex medical issues, will monitor the patient closely. Continue the current management, continue the symptomatic treatment. I would recommend MRI and Neurology consultation and Cardiology consultation also. The prognosis is guarded because of the multiple complex medical issues. Discussed with the patient and family who understands and agrees. Further recommendations to follow. Prognosis guarded. See orders for details. MMODL / IJN: [id number] / MTDD
[2017-11-12] MEDS: DOFETILIDE 250 MCG CAP PO SCH (21:10)
[2017-11-12] MEDS: WARFARIN 5 MG TAB PO SCH (21:10)
[2017-11-12] MEDS: METOPROLOL TARTRATE 50 MG TAB PO SCH (21:10)
[2017-11-12] MEDS ORDERED: traMADol 50 MG TAB PO PRN (21:18)
[2017-11-13 05:56] LABS: Basophils % (A) 1 %; Eosinophils # (A) 0.2 k/uL (0-0.7); Eosinophils % (A) 3 %; HCT 41.9 % (34.0-46.0); HGB 13.8 gm/dL (11.4-16.0); Lymphocytes # (A) 1.8 k/uL (1.0-4.8); Lymphocytes % (A) 26 %; MCH 29.8 pg (25.0-35.0); MCV 90.2 fL (80.0-100.0); Mean Platelet Volume 6.8; Monocytes # (A) 0.4 k/uL (0-1.0); Monocytes % (A) 5 %; Neutrophils # (A) 4.3 k/uL (1.3-7.7); Neutrophils % (A) 63 %; Platelet Count 172 k/uL (150-450); RBC 4.64 m/uL (3.80-5.40); RDW 13.1 % (11.5-15.5); WBC 6.8 k/uL (3.8-10.6)
[2017-11-13 06:14] LABS: Anion Gap 8 mmol/L; Blood Urea Nitrogen 18 mg/dL (7-17); Calcium 8.7 mg/dL (8.4-10.2); Carbon Dioxide 27 mmol/L (22-30); Chloride 103 mmol/L (98-107); Cholesterol 113 mg/dL (<200); Glucose 145 mg/dL (74-99); HDL Cholesterol 36 mg/dL (40-60); LDL Cholesterol,Calculated 45 mg/dL (0-99); Potassium 3.6 mmol/L (3.5-5.1); Sodium 138 mmol/L (137-145); Triglycerides 158 mg/dL (<150)
[2017-11-13 06:16] LABS: INR 2.1 (<1.2); Prothrombin Time 18.6 sec (9.0-12.0)
[2017-11-13] MEDS: METOPROLOL TARTRATE 50 MG TAB PO SCH (06:40)
[2017-11-13] MEDS ORDERED: ASPIRIN 325 MG TAB PO SCH (09:00)
[2017-11-13] MEDS ORDERED: MAGNESIUM OXIDE 400 MG TAB PO SCH (09:00)
[2017-11-13] MEDS ORDERED: CHOLECALCIFEROL 1,000 UNIT TAB PO SCH (09:00)
[2017-11-13] MEDS: WARFARIN 5 MG TAB PO SCH (09:39)
[2017-11-13] MEDS: DOFETILIDE 250 MCG CAP PO SCH (09:39)
[2017-11-13 10:48] VITALS: RESP 16
[2017-11-13] MEDS ORDERED: KETOROLAC 30 MG/ML 1 ML VIAL IVP STA (11:23)
[2017-11-13 11:26] LABS: Appearance,Urine Turbid (Clear); Bacteria,Urine Occasional /hpf; Bilirubin,Urine Negative (Negative); Blood,Urine Negative (Negative); Color,Urine Yellow; Glucose,Urine (UA) Negative (Negative); Ketones,Urine Negative (Negative); Leukocyte Esterase,Urine Large (Negative); Mucus,Urine Many /hpf; Nitrite,Urine Negative (Negative); PH, Urine 5.5 (5.0-8.0); Protein,Urine 1+ (Negative); RBC,Urine 9 /hpf (0-5); Specific Gravity,Urine 1.034 (1.001-1.035); Squamous Epithelial Cell,Urine 52 /hpf (0-4); Urobilinogen,Urine <2.0 mg/dL (<2.0); WBC,Urine 40 /hpf (0-5)
[2017-11-13 11:36] VITALS: BP 127/62; PULSE 58; TEMP 97.6
[2017-11-13] MEDS ORDERED: B COMPLEX-VIT C-VIT E-ZINC 1 EACH TAB PO SCH (12:00)
[2017-11-13] MEDS ORDERED: LEVOFLOXACIN 500MG-D5W PMX 500 MG in DEXTROSE/WATER 1 100ML.BAG IVPB STA (12:24)
--- NOTE | 2017-11-13 13:02 | P.CRDCN ---
History of Present Illness Consult date: 11/13/17 History of present illness: This is a 62-year-old female with history of of persistent atrial fibrillation who recently underwent ablation at [facility]. Apparently she had a staged procedure. After pulmonary vein isolation, patient did develop some headache. Apparently sometimes people can get headaches after the procedure but that gradually improved within a week. Yesterday patient developed sudden left-sided headache followed by and numbness in the left arm and also in the right leg. The numbness symptoms lasted about 20 minutes and gradually improved. The headache took several hours to improve. Patient still has mild discomfort about the left thigh area. Patient had several investigations including a brain CT, MRI of the brain and neck and carotid studies. So far, no skin abnormalities are noted. Patient is wondering if this could be related to migraine headache. Dr. Valdovinos has evaluated the patient and was considering the possibility of TIA. Patient has been on Coumadin since the procedure and INRs were in the range of 2-2.1. If the symptoms are related to migraine headache, no further cardiac workup is suggested. However, if it is felt to be TIA, a NICOLAS may be considered. So far. Patient hasn't had any recurrence of atrial fibrillation since ablation. Her EKG on admission showed sinus rhythm Past Medical History Past Medical History: Coronary Artery Disease (CAD), Hyperlipidemia Additional Past Medical History / Comment(s): proximal afib History of Any Multi-Drug Resistant Organisms: None Reported Past Surgical History: Section, Cholecystectomy, Orthopedic Surgery Additional Past Surgical History / Comment(s): cardiac ablation, PVI 2017 Past Psychological History: Depression Smoking Status: Never smoker Past Alcohol Use History: None Reported Past Drug Use History: None Reported Medications and Allergies Home Medications Medication Instructions Recorded Confirmed Type Cholecalciferol [Vitamin D3] 2,000 unit PO DAILY 02/27/16 11/12/17 History Omeprazole [PriLOSEC] 20 mg PO DAILY PRN 02/27/16 11/12/17 History Vitamin B Complex 1 cap PO DAILY 02/27/16 11/12/17 History Warfarin Sodium [Coumadin] 5 mg PO HS 02/27/16 11/12/17 History Dofetilide [Tikosyn] 250 mcg PO Q12HR 09/29/17 11/12/17 History Magnesium Gluconate [Magonate] 500 mg PO TID 11/12/17 11/12/17 History Aspirin EC [Ecotrin Low Dose] 81 mg PO DAILY #1 tablet. 11/13/17 Rx Levofloxacin [Levaquin] 500 mg PO DAILY #5 tab 11/13/17 Rx Metoprolol Tartrate [Lopressor] 50 mg PO Q12H #60 tab 11/13/17 Rx Allergies Allergy/AdvReac Type Severity Reaction Status Date / Time azithromycin [From Zithromax] AdvReac Nausea & Verified 11/12/17 14:11 Vomiting Physical Exam Vitals: Vital Signs Temp Pulse Pulse Resp BP BP Pulse Ox 11/13/17 11:20 97.6 F 58 L 16 127/62 96 11/13/17 08:40 60 16 11/13/17 08:00 97.5 F L 58 L 16 108/53 97 11/13/17 03:55 57 L 18 11/13/17 03:53 98.0 F 57 L 18 122/58 94 L 11/13/17 00:00 99.2 F 67 18 123/58 95 11/12/17 20:00 98.1 F 77 18 151/69 92 L 11/12/17 18:35 97.9 F 73 18 186/76 100 11/12/17 16:44 98 F 71 20 175/77 99 11/12/17 14:04 62 185/83 100 11/12/17 13:49 68 205/93 100 11/12/17 13:34 68 18 180/96 99 11/12/17 13:21 67 18 182/83 100 11/12/17 13:08 97.4 F L 75 20 215/98 96 Intake and Output 11/12/17 11/13/17 11/13/17 22:59 06:59 14:59 Intake Total 240 Balance 240 Intake: Oral 240 Other: Voiding Method Toilet Toilet Toilet # Voids 1 1 Weight 113.398 kg 125.9 kg GENERAL EXAM: Patient is alert and oriented and doesn't appear to be in any acute distress HEENT: Normocephalic. Normal reaction of pupils, equal size, normal range of extraocular motion. No erythema or exudates in the throat. NECK: No masses, no nuchal rigidity. CHEST: No chest wall deformity. LUNGS: Equal air entry with no crackles or wheeze. HEART: S1 and S2 normal with no audible mumurs or gallops. Regular rhythm, femorals equal on both sides.. ABDOMEN: No hepatosplenomegaly, normal bowel sounds, no guarding or rigidity. SKIN: No rashes CENTRAL NERVOUS SYSTEM: No focal deficits. EXTREMITIES: No cyanosis, clubbing or edema. Results 11/13/17 05:40 11/13/17 05:40 Cardiac Enzymes 11/12/17 11/12/17 Range/Units 13:30 13:30 AST 40 H (14-36) U/L CK-MB (CK-2) 2.2 (0.0-2.4) ng/mL Troponin I <0.012 (0.000-0.034) ng/mL Coagulation 11/12/17 11/13/17 Range/Units 13:30 05:40 PT 18.5 H 18.6 H (9.0-12.0) sec APTT 28.3 (22.0-30.0) sec Lipids 11/13/17 Range/Units 05:40 Triglycerides 158 H (<150) mg/dL Cholesterol 113 (<200) mg/dL HDL Cholesterol 36 L (40-60) mg/dL CBC 11/12/17 11/13/17 Range/Units 13:30 05:40 WBC 6.5 6.8 (3.8-10.6) k/uL RBC 5.44 H 4.64 (3.80-5.40) m/uL Hgb 16.4 H 13.8 (11.4-16.0) gm/dL Hct 47.6 H 41.9 (34.0-46.0) % Plt Count 195 172 (150-450) k/uL Comprehensive Metabolic Panel 11/12/17 11/13/17 Range/Units 13:30 05:40 Sodium 139 138 (137-145) mmol/L Potassium 4.0 3.6 (3.5-5.1) mmol/L Chloride 102 103 (98-107) mmol/L Carbon Dioxide 24 27 (22-30) mmol/L BUN 20 H 18 H (7-17) mg/dL Creatinine 0.70 0.90 (0.52-1.04) mg/dL Glucose 129 H 145 H (74-99) mg/dL Calcium 9.7 8.7 (8.4-10.2) mg/dL AST 40 H (14-36) U/L ALT 37 (9-52) U/L Alkaline Phosphatase 91 (38-126) U/L Total Protein 7.2 (6.3-8.2) g/dL Albumin 4.6 (3.5-5.0) g/dL Current Medications Generic Name Dose Route Start Last Admin Trade Name Freq PRN Reason Stop Dose Admin Acetaminophen/Codeine Phosphate 1 each 11/12/17 17:40 Tylenol #3 PO Q4HR PRN Pain Aspirin 325 mg 11/13/17 09:00 11/13/17 09:39 Aspirin PO 325 mg DAILY NUNU Administration Cholecalciferol 2,000 unit 11/13/17 09:00 11/13/17 09:39 Vitamin D3 PO 2,000 unit DAILY NUNU Administration Dofetilide 250 mcg 11/12/17 21:00 11/13/17 09:39 Tikosyn PO 250 mcg Q12HR NUNU Administration Hydromorphone HCl 0.5 mg 11/12/17 17:38 Dilaudid IVP Q3HR PRN Severe Pain Levofloxacin 500 mg/ IV 100 mls @ 100 mls/hr 11/13/17 12:24 Solution IVPB 11/13/17 13:23 ONCE STA Ketorolac Tromethamine 15 mg 11/12/17 17:41 Toradol IVP 11/16/17 17:41 Q6HR PRN Breakthrough Pain Magnesium Oxide 400 mg 11/13/17 09:00 11/13/17 09:39 Mag-Ox PO 400 mg DAILY NUNU Administration Metoprolol Tartrate 50 mg 11/12/17 18:00 11/13/17 06:40 Lopressor PO 50 mg Q12H NUNU Administration Miscellaneous Information 1 each 11/12/17 13:50 Rx Info: Iv Contrast Was Given MISCELLANE 11/14/17 13:50 DAILY PRN Per Protocol Pantoprazole Sodium 40 mg 11/12/17 17:39 Protonix PO AC-BRKFST PRN Indigestion Tramadol HCl 50 mg 11/12/17 21:18 11/13/17 00:26 Ultram PO 50 mg Q6H PRN Administration Pain 4-6 Vitamin B Complex/Vit C/Vit E/Zinc 1 each 11/13/17 12:00 Z-Bec PO DAILY@1200 NUNU Warfarin Sodium 5 mg 11/12/17 21:00 11/13/17 09:39 Coumadin PO 5 mg HS NUNU Administration Intake and Output 11/12/17 11/13/17 11/13/17 22:59 06:59 14:59 Intake Total 240 Balance 240 Intake: Oral 240 Other: Voiding Method Toilet Toilet Toilet # Voids 1 1 Weight 113.398 kg 125.9 kg 11/13/17 05:40 11/13/17 05:40 EKG Interpretations (text) Sinus rhythm Assessment and Plan (1) Paroxysmal atrial fibrillation Current Visit: Yes Status: Acute Code(s): I48.0 - PAROXYSMAL ATRIAL FIBRILLATION SNOMED Code(s): 079126278 (2) Migraine headache Current Visit: Yes Status: Acute Code(s): G43.909 - MIGRAINE, UNSP, NOT INTRACTABLE, WITHOUT STATUS MIGRAINOSUS SNOMED Code(s): 59798680 Plan: Patient's remains stable today. Patient is maintaining sinus rhythm and has therapeutic INRs. If the symptoms are felt to be related to migraine headaches , no further workup is necessary. If the symptoms are felt to be TIA, a NICOLAS examination may be considered. Thank you
--- NOTE | 2017-11-13 13:07 | ECHOF ---
Referral Reason:TIA, afib MEASUREMENTS -------- HEIGHT: 182.9 cm WEIGHT: 125.6 kg BP: 108/53 RVIDd: 3.0 cm (< 3.3) IVSd: 1.2 cm (0.6 - 1.1) LVIDd: 3.6 cm (3.9 - 5.3) LVPWd: 1.1 cm (0.6 - 1.1) IVSs: 1.5 cm LVIDs: 2.5 cm LVPWs: 1.9 cm LA Diam: 3.5 cm (2.7 - 3.8) LAESV Index (A-L): 29.25 ml/m Ao Diam: 3.0 cm (2.0 - 3.7) AV Cusp: 2.2 cm (1.5 - 2.6) MV EXCURSION: 22.169 mm (> 18.000) MV EF SLOPE: 137 mm/s (70 - 150) EPSS: 0.2 cm MV E Joshua: 1.08 m/s MV DecT: 277 ms MV A Joshua: 0.80 m/s MV E/A Ratio: 1.36 RAP: 15.00 mmHg RVSP: 43.03 mmHg FINDINGS -------- Sinus rhythm. This was a technically good study. The left ventricular size is normal. There is borderline concentric left ventricular hypertrophy. Overall left ventricular systolic function is normal with, an EF between 55 - 60 %. The right ventricle is normal in size. LA is midly dilated 29-33ml/m2. The right atrium is normal in size. The aortic valve is trileaflet and appears structurally normal. The mitral valve is normal. Mild mitral regurgitation is present. Mild tricuspid regurgitation present. There is mild pulmonary hypertension. The right ventricular systolic pressure, as measured by Doppler, is 43.03mmHg. There is no pulmonic regurgitation present. The aortic root size is normal. The inferior vena cava is dilated with poor inspiratory collapse which is consistent with estimated r ight atrial pressure of 20 mmHg. There is no pericardial effusion. CONCLUSIONS -------- 1. Sinus rhythm. 2. This was a technically good study. 3. The left ventricular size is normal. 4. There is borderline concentric left ventricular hypertrophy. 5. Overall left ventricular systolic function is normal with, an EF between 55 - 60 %. 6. LA is midly dilated 29-33ml/m2. 7. The aortic valve is trileaflet and appears structurally normal. 8. Mild mitral regurgitation is present. 9. Mild tricuspid regurgitation present. 10. There is mild pulmonary hypertension. 11. There is no pulmonic regurgitation present. 12. The aortic root size is normal. 13. The inferior vena cava is dilated with poor inspiratory collapse which is consistent with estimat ed right atrial pressure of 20 mmHg. 14. There is no pericardial effusion. MICA PASTER: Kimberli Al RDCS
--- NOTE | 2017-11-13 15:25 | DS ---
DISCHARGE SUMMARY FINAL DIAGNOSES: 1. Severe headaches, possibly migraine cephalalgia. 2. Numbness possible acute transient ischemic attack. 3. History of recent cardiac ablation. 4. Hyperlipidemia. 5. Paroxysmal atrial fibrillation. 6. History of coronary artery disease. 7. History of cholecystectomy. 8. History of degenerative joint disease. 9. History of depression. 10.Urinary tract infection. DISCHARGE DISPOSITION: The patient is being discharged in stable condition with guarded prognosis. Guarded prognosis. Discharged cleared by neurology. HISTORY OF PRESENT ILLNESS: This 62-year-old woman with a past medical history of multiple medical problems is followed with primary physician elsewhere and recently had an ablation procedure at [facility]. The patient is admitted with multiple symptomatology as mentioned earlier. The patient was seen by Cardiology and neurology. Care was coordinated. The patient was treated symptomatically. Patient improved significantly. PHYSICAL EXAMINATION: On exam, vital signs stable. Cardiovascular S1, S2. Abdomen soft. Nervous system: No focal deficits. The patient is advised to follow up with the patient's own cardiology and Neurology closely. A 2D echo, MRI/MRA was within normal limits. No evidence of aneurysm was noted. 2D echo showed ejection fraction 50-60%. DISCHARGE ADVICE AND MEDICATIONS: 1. Diet is cardiac diet. 2. Activity limited until Followup. 3. Follow up with Dr. Harris in three days. 4. Follow with Cardiology and Neurology as recommended. 5. Medications will be Tylenol 500 mg q.6h p.r.n. 6. Ceftin 500 mg p.o. b.i.d. for 3 days. 7. Vitamin D3 2000 daily. 8. Tikosyn 250 mcg b.i.d. 9. Magnesium gluconate 500 mg p.o. t.i.d. 10.Lopressor 50 mg p.o. b.i.d. 11.Prilosec 20 mg. 12.Vitamin B complex one p.o. daily. 13.Coumadin 5 mg q.h.s. 14.Followup labs in the outpatient setting. Once again, the patient is being discharged in stable condition with guarded prognosis. MMODL / IJN: [id number] / MTDD
== END 2017-11-13 15:52 | disposition home or self-care (01) ==
LOC: EC 13:06 → 6SEL 15:37 → INTOOBSV 15:37
PROVIDERS: ADMIT Hospitalist; ATTEND Hospitalist
DX: R51 Headache (principal); R20.0 Anesthesia of skin; R47.81 Slurred speech; R27.9 Unspecified lack of coordination; E78.5 Hyperlipidemia, unspecified; I48.0 Paroxysmal atrial fibrillation; N39.0 Urinary tract infection, site not specified; I25.10 Atherosclerotic heart disease of native coronary artery without angina pectoris; F32.9 Major depressive disorder, single episode, unspecified; Z86.69 Personal history of other diseases of the nervous system and sense organs; Z79.01 Long term (current) use of anticoagulants; Z79.82 Long term (current) use of aspirin; Z79.899 Other long term (current) drug therapy; Z88.1 Allergy status to other antibiotic agents; Z90.49 Acquired absence of other specified parts of digestive tract; M19.90 Unspecified osteoarthritis, unspecified site; Z98.890 Other specified postprocedural states
CPT/HCPCS: 99285 ×2; 96374 ×2; 96375 ×3; 96361 ×2; 36415; 93005; 93306; 97161; 97165; 92523; 80061; 80053; 80048; 85652; 82550; 82553; 84484; 85025 ×2; 85610 ×2; 85730; 86140; 81001; 87086; 71046; 70496; 70450; 70498; 70544; 70553; G0378 ×3; J1200; J2550; Q9967; J2405; J1885; A9581